=== PATIENT | male | born 1945 | race Native Hawaiian/Other Pacific Islander ===

== ENCOUNTER 2017-08-01 21:44 | Inpatient (IN) | payer MEDICARE ==
[~2017-08-01] VITALS: Ht 180.3 cm; Wt 78.1 kg
[~2017-08-01 21:44] MED LIST: ASPI-183 PO; GLUCTES27; LACT10SO PO; LANCETS1 MI1; LEVO50TA4 PO; LISI-519 PO; MAGN250T11 PO; MULT1TAB84 PO; TACR1 PO; VENL150C39 PO
[2017-08-01 21:53] VITALS: BP 221/117; PULSE 81; RESP 16; TEMP 98; O2SAT 99
[2017-08-01] MEDS ORDERED: SODIUM CHLOR 0.9% 1000 ML INJ 1,000 ML IV SCH (21:55)
[2017-08-01] MEDS ORDERED: LORazepam 2 MG/ML VIAL ONE (21:59)
[2017-08-01] MEDS ORDERED: SODIUM CHLORIDE 0.9% FLUSH 10 ML FLUSH IV FLUSH PRN (22:00)
[2017-08-01 22:02] VITALS: BP 221/117; PULSE 104; RESP 24; O2SAT 98
--- NOTE | 2017-08-01 22:12 | PD ---
HPI Chief Complaint: Seizure Time Seen by Provider: 21:55 Travel History International Travel<30 days: No Contact w/Intl Traveler<30days: No Traveled to known affect area: No History of Present Illness HPI This is a 71-year-old male who has a history of remote liver transplant who presents to the emergency department with seizure activity. At around 5 PM they were opening presents and he had an episode where he passed out and looked like he had a seizure. He went to rest. Later his checked on him and she noticed he had a second seizure that lasted about 30 minutes, constant, moderate severity associated with generalized tonic-clonic activity. The patient wet himself during this episode. He says he feels very cold but doesn' t provide much other history. He's never had seizures before per [facility]. PFSH Past Medical History Arthritis: No Asthma: No Autoimmune Disease: No Blood Disorders: Yes Anxiety: No Depression: Yes Heart Rhythm Problems: No Cancer: No Cardiovascular Problems: Yes High Cholesterol: No Chemotherapy: No Chest Pain: No Congestive Heart Failure: No COPD: No Cerebrovascular Accident: No Diabetes: Yes Endocrine: Yes GERD: No Glaucoma: No Genitourinary: Yes Headaches: Yes Hepatitis: Yes (hep-c) Hiatal Hernia: Yes Hypertension: No Immune Disorder: No Kidney Stones: Yes Musculoskeletal: No Neurologic: Yes Psychiatric: No Reproductive: No Respiratory: No Myocardial Infarction: No Renal Failure: No Seizures: No Sickle Cell Disease: No Sleep Apnea: No Thyroid Disease: No Ulcer: No ?: Not Past Surgical History Abdominal Surgery: Yes (hernia repair and kidney stones removed.two clavicles resected,) AICD: No Cardiac Surgery: No Cholecystectomy: Yes Ear Surgery: No Endocrine Surgery: No Eye Surgery: No Genitourinary Surgery: No Gynecologic Surgery: No Pacemaker: No Thoracic Surgery: No Other Surgery: Yes (LIVER TRANSPLANT 06/2004) Social History Alcohol Use: No Tobacco Use: No Substance Use: No Allergies-Medications (Allergen,Severity, Reaction): Coded Allergies: Sulfa (Sulfonamide Antibiotics) (Unverified Allergy, Severe, Hives, ) codeine (Unverified Allergy, Mild, NAUSEA, 03/22/17) Reported Meds & Prescriptions Reported Meds & Active Scripts Active Levothyroxine (Levothyroxine Sodium) 50 Mcg Tab 50 Mcg PO DAILY Lancets 1 Mis Mis Ea .ROUTE BID Margaret Contour Next Blood Test Strips (Blood Glucose Test Strips) 1 Alma Alma 1 Strip .ROUTE BID Venlafaxine ER 24 HR (Venlafaxine HCl) 150 Mg Cap 150 Mg PO DAILY Lisinopril 5 Mg Tab 5 Mg PO DAILY Lactulose Liq (Lactulose) 10 Gm/15 Ml Soln 30 Ml PO TID Reported Aspirin 325 Mg Tab 325 Mg PO DAILY Magnesium Oxide 250 Mg Tab 250 Mg PO DAILY Prograf (Tacrolimus) 1 Mg Cap 1 Mg PO DAILY 1tab in the am and 2 tabs at hs Review of Systems ROS Limitations: Altered Mental Status (somnolent) Physical Exam Narrative GENERAL:Well appearing, no acute distress SKIN: Focused skin assessment warm and dry. HEAD: Atraumatic. Normocephalic. EYES: Pupils equal and round. No injection or drainage. ENT: Moist mucous membranes NECK: Trachea midline. CARDIOVASCULAR: Regular rate and rhythm. No murmur appreciated. RESPIRATORY: Clear to auscultation. Breath sounds equal bilaterally. GASTROINTESTINAL: Abdomen soft, non-tender, nondistended. MUSCULOSKELETAL: No obvious deformities. NEUROLOGICAL: Sleepy but awakens and answers questions. No obvious cranial nerve deficits. Moving all extremities, 5 out of 5 strength in the bilateral upper and lower extremities. No dysarthria or aphasia. Data Data Last Documented VS Vital Signs Date Time Temp Pulse Resp B/P (MAP) Pulse Ox O2 Delivery O2 Flow Rate FiO2 08/01/17 22:21 100 20 150/72 (98) 100 Nasal Cannula 2.00 08/01/17 21:53 98.0 Orders Orders Complete Blood Count With Diff (08/01/17 21:55) Comprehensive Metabolic Panel (08/01/17 21:55) Prothrombin Time / Inr (Pt) (08/01/17 21:55) Act Partial Throm Time (Ptt) (08/01/17 21:55) Urinalysis - C+S If Indicated (08/01/17 21:55) Ct Brain W/O Iv Contrast(Rout) (08/01/17 21:55) Blood Glucose (08/01/17 21:55) Ecg Monitoring (08/01/17 21:55) Iv Access Insert/Monitor (08/01/17 21:55) Oximetry (08/01/17 21:55) Sodium Chloride 0.9% Flush (Ns Flush) (08/01/17 22:00) Sodium Chlor 0.9% 1000 Ml Inj (Ns 1000 M (08/01/17 21:55) Alcohol (Ethanol) (08/01/17 21:55) Lorazepam Inj (Ativan Inj) (08/01/17 21:59) Fosphenytoin Inj (Cerebyx Inj) (08/01/17 22:15) Ammonia (08/01/17 22:23) Lorazepam Inj (Ativan Inj) (08/01/17 22:30) Lactulose Liq (Lactulose Liq) (08/01/17 23:45) Admit Order (Ed Use Only) (08/02/17 00:01) Place In Observation (08/02/17 ) Vital Signs (Adult) Q4H (08/02/17 00:05) Activity Bed Rest (08/02/17 ) Neuro Checks Q4H (08/02/17 00:05) 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 DARIANA.Q8H (08/02/17 00:05) ^ Seizure Precautions (08/02/17 ) Diet Heart Healthy (08/02/17 Breakfast) Sodium Chloride 0.9% Flush (Ns Flush) (08/02/17 00:15) Sodium Chloride 0.9% Flush (Ns Flush) (08/02/17 09:00) Ondansetron Inj (Zofran Inj) (08/02/17 00:15) Complete Blood Count With Diff (08/02/17 06:00) Comprehensive Metabolic Panel (08/02/17 06:00) Eeg Study (08/02/17 ) Consult Neurology (08/02/17 ) Lorazepam Inj (Ativan Inj) (08/02/17 00:15) Acetaminophen (Tylenol) (08/02/17 00:15) Bedside Glucose DARIANA.CSUGAR (08/02/17 00:05) Special Diet Instructions (08/02/17 00:05) Blood Glucose Goal (Criteria) (08/02/17 00:05) Hypoglycemia 70 Mg/Dl Or < (08/02/17 00:05) Notify Dr: Other (08/02/17 00:05) Dextrose 50% In Lili (Vial) Inj (D50w (Vi (08/02/17 00:15) Glucagon Inj (Glucagon Inj) (08/02/17 00:15) Insulin Aspart Supplemtl Scale (Novolog (08/02/17 08:00) Lactulose Liq (Lactulose Liq) (08/02/17 09:00) Ammonia (08/02/17 06:00) Heparin Inj (Heparin Inj) (08/02/17 06:00) Labs Laboratory Tests Test 08/01/17 21:50 08/01/17 22:20 White Blood Count 14.8 TH/MM3 Red Blood Count 5.13 MIL/MM3 Hemoglobin 15.9 GM/DL Hematocrit 47.0 % Mean Corpuscular Volume 91.6 FL Mean Corpuscular Hemoglobin 31.0 PG Mean Corpuscular Hemoglobin Concent 33.8 % Red Cell Distribution Width 14.3 % Platelet Count 179 TH/MM3 Mean Platelet Volume 9.0 FL Neutrophils (%) (Auto) 67.7 % Lymphocytes (%) (Auto) 25.7 % Monocytes (%) (Auto) 4.6 % Eosinophils (%) (Auto) 1.6 % Basophils (%) (Auto) 0.4 % Neutrophils # (Auto) 10.0 TH/MM3 Lymphocytes # (Auto) 3.8 TH/MM3 Monocytes # (Auto) 0.7 TH/MM3 Eosinophils # (Auto) 0.2 TH/MM3 Basophils # (Auto) 0.1 TH/MM3 CBC Comment AUTO DIFF Differential Comment AUTO DIFF CONFIRMED Platelet Estimate NORMAL Platelet Morphology Comment NORMAL Prothrombin Time 10.0 SEC Prothromb Time International Ratio 1.0 RATIO Activated Partial Thromboplast Time 24.5 SEC Blood Urea Nitrogen 27 MG/DL Creatinine 1.67 MG/DL Random Glucose 192 MG/DL Total Protein 7.8 GM/DL Albumin 4.0 GM/DL Calcium Level 9.0 MG/DL Alkaline Phosphatase 112 U/L Aspartate Amino Transf (AST/SGOT) 31 U/L Alanine Aminotransferase (ALT/SGPT) 35 U/L Total Bilirubin 0.3 MG/DL Sodium Level 141 MEQ/L Potassium Level 3.5 MEQ/L Chloride Level 107 MEQ/L Carbon Dioxide Level 17.4 MEQ/L Anion Gap 17 MEQ/L Estimat Glomerular Filtration Rate 41 ML/MIN Ethyl Alcohol Level LESS THAN 3 MG/DL Ammonia 115 MCMOL/L MDM Medical Decision Making Medical Screen Exam Complete: Yes Emergency Medical Condition: Yes Interpretation(s) CT head: No intracranial hemorrhage Leukocytosis (possible stress response in the setting of seizure) Anion gap of 17 with low bicarbonate likely in the setting of recent seizure due to lactic acidosis Renal insufficiency Ammonia is 115 Differential Diagnosis Seizure, hepatic encephalopathy, intracranial hemorrhage, stroke, encephalitis Narrative Course This is a 71-year-old male who has a history of recurrent hepatic encephalopathy presents to the emergency department having had at least 2 if not 3 episodes of seizure-like activity today. He had one episode here in the emergency department. He was placed on a monitor and an IV was established. He was given 2 mg of IV Ativan and loaded with fosphenytoin. CT of the head was negative for intracranial hemorrhage. Labs demonstrate some dehydration and are consistent with recent seizure. His reports that one year ago he had a similar episode where he had a seizure and it was attributed to his hepatic encephalopathy. Today his ammonia is over 100. Patient will be admitted to the hospital for continued seizure management and lactulose due to hepatic encephalopathy. Physician Communication Physician Communication Discussed with Dr. Carias Diagnosis Primary Impression: Seizures Additional Impression: Hepatic encephalopathy Admitting Information Admitting Physician Requests: Admit Peggy Ortiz MD Aug 01, 2017 22:12
[2017-08-01] MEDS ORDERED: FOSPHENYTOIN INJ 1,000 MGPE in SODIUM CHLORIDE 0.9% INJ 50 ML IV ONE (22:15)
[2017-08-01 22:21] VITALS: BP 150/72; PULSE 100; RESP 20; O2SAT 100
[2017-08-01] MEDS ORDERED: LORazepam 2 MG/ML VIAL IV PUSH ONE (22:30)
[2017-08-01 22:35] LABS: BASOPHIL # 0.1 TH/MM3 (0-0.2); BASOPHIL % 0.4 % (0.0-2.0); EOSINOPHIL # 0.2 TH/MM3 (0-0.4); EOSINOPHIL % 1.6 % (0.0-4.0); HEMOGLOBIN 15.9 GM/DL (13.0-17.0); LYMPH % 25.7 % (9.0-44.0); LYMPHOCYTE # 3.8 TH/MM3 (1.0-4.8); MEAN CELL VOLUME 91.6 FL (80.0-100.0); MEAN CORPUSCULAR HGB CONC 33.8 % (32.0-36.0); MONO % 4.6 % (0.0-8.0); MONOCYTE # 0.7 TH/MM3 (0-0.9); NEUT % 67.7 % (16.0-70.0); PLATELET COUNT 179 TH/MM3 (150-450); RED BLOOD COUNT 5.13 MIL/MM3 (4.50-5.90); RED CELL DISTRIBUTION WIDTH 14.3 % (11.6-17.2); WHITE BLOOD COUNT 14.8 TH/MM3 (4.0-11.0)
--- NOTE | 2017-08-01 22:48 | RADRPT ---
EXAM DATE/TIME: 08/01/2017 22:23 [facility] COMPARISON: CT BRAIN W/O CONTRAST, June 23, 2016, 15:45. INDICATIONS : Altered mental status, history of seizures. RADIATION DOSE: 69.16 CTDIvol (mGy) MEDICAL HISTORY : Renal calculi. Diabetes mellitus type 2. SURGICAL HISTORY : Hernia repair. ENCOUNTER: Initial ACUITY: 1 day PAIN SCALE: Non-responsive LOCATION: Bilateral cranial TECHNIQUE: Multiple contiguous axial images were obtained of the head. Using automated exposure control and adj ustment of the mA and/or kV according to patient size, radiation dose was kept as low as reasonably a chievable to obtain optimal diagnostic quality images. DICOM format image data is available electro nically for review and comparison. FINDINGS: CEREBRUM: The ventricles are normal for age. No evidence of midline shift, mass lesion, hemorrhage or acute in farction. No extra-axial fluid collections are seen. POSTERIOR FOSSA: The cerebellum and brainstem are intact. The 4th ventricle is midline. The cerebellopontine angle i s unremarkable. EXTRACRANIAL: The visualized portion of the orbits is intact. SKULL: The calvaria is intact. No evidence of skull fracture. CONCLUSION: No acute intracranial findings. Dayday Merchant MD on August 01, 2017 at 22:43 Board Certified Radiologist. This report was verified electronically.
[2017-08-01 22:51] LABS: ALKALINE PHOSPHATASE 112 U/L (45-117); TOTAL BILIRUBIN ADULT 0.3 MG/DL (0.2-1.0); TOTAL PROTEIN 7.8 GM/DL (6.4-8.2)
[2017-08-01 22:53] LABS: ALT (GPT) 35 U/L (12-78); AST (GOT) 31 U/L (15-37); BICARBONATE 17.4 MEQ/L (21.0-32.0); BLOOD UREA NITROGEN 27 MG/DL (7-18); CHLORIDE 107 MEQ/L (98-107); CREATININE 1.67 MG/DL (0.60-1.30); GLOMERULAR FILTRATION RATE 41 ML/MIN (>89); GLUCOSE,RANDOM 192 MG/DL (74-106); SODIUM (NA) 141 MEQ/L (136-145)
[2017-08-01] MEDS ORDERED: LACTULOSE SYRUP 20 GM/30 ML CUP PO ONE (23:45)
[2017-08-02] VITALS (9 sets, daily range): BP systolic 105–178; BP diastolic 59–81; PULSE 63–86; RESP 16–20; TEMP 97.9–99.5; O2SAT 91–100
[2017-08-02] MEDS ORDERED: ACETAMINOPHEN 325 MG TAB PO PRN (00:15)
[2017-08-02] MEDS ORDERED: GLUCAGON 1 MG/ML VIAL OTHER PRN (00:15)
[2017-08-02] MEDS ORDERED: LACTULOSE LIQ 300 ML in WATER STERILE FOR IRR BTL 700 ML RECTAL ONE (00:15)
[2017-08-02] MEDS ORDERED: DEXTROSE 50% IN WATER 50 ML VIAL(D50) IV PUSH PRN (00:15)
[2017-08-02] MEDS ORDERED: ONDANSETRON HCL 4 MG/2 ML VIAL IV PUSH PRN (00:15)
[2017-08-02] MEDS ORDERED: SODIUM CHLORIDE 0.9% FLUSH 10 ML FLUSH IV FLUSH PRN (00:15)
[2017-08-02] MEDS ORDERED: LORazepam 2 MG/ML VIAL IV PUSH PRN (00:15)
--- NOTE | 2017-08-02 00:54 | HHI.HP ---
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 Around approximately 7 PM his noticed bilateral lower extremity twitching which was concerning to her. The patient then went to lay down on the couch and was noted to have a generalized clonic tonic seizure at approximately 8:30 PM this lasted for approximately 30 seconds. Positive loss of bladder function. The patient has had a similar episode approximately one year ago secondary to hyperammonemia. Patient's ammonia today was 115. In the emergency department, the patient had a second witnessed seizure. He was given Ativan and fosphenytoin. Per the patient's , he has been postictal following his seizure at 8:30. He will arouse briefly to sternal rub but remains sleepy and does not answer questions. Review of Systems Unable to obtain secondary to patient's clinical condition Past Family Social History Past Medical History Diet-controlled diabetes mellitus Past Surgical History Status post liver transplant in 2003 for hepatitis C cirrhosis - followed at [facility] Allergies: Coded Allergies: Sulfa (Sulfonamide Antibiotics) (Unverified Allergy, Severe, Hives, ) codeine (Unverified Allergy, Mild, NAUSEA, 03/22/17) Family History Mother with diabetes mellitus Social History No alcohol, tobacco or illicit drugs Physical Exam Vital Signs Vital Signs Date Time Temp Pulse Resp B/P (MAP) Pulse Ox O2 Delivery O2 Flow Rate FiO2 08/02/17 00:29 86 16 128/60 (82) 97 Nasal Cannula 2.00 08/01/17 22:21 100 20 150/72 (98) 100 Nasal Cannula 2.00 08/01/17 22:10 96 20 100 Nasal Cannula 2.00 08/01/17 22:02 104 24 221/117 (151) 98 Nasal Cannula 2.00 08/01/17 21:53 98.0 81 16 221/117 151 99 Physical Exam GENERAL: male lying in bed SKIN: No rashes, ecchymoses or lesions. Cool and dry. HEAD: Atraumatic. Normocephalic. No temporal or scalp tenderness. EYES: Pupils equal round and reactive. No scleral icterus. No injection or drainage. ENT: Nose without bleeding, purulent drainage or septal hematoma. Airway patent. NECK: Trachea midline. No JVD or lymphadenopathy. Supple, nontender, no meningeal signs. CARDIOVASCULAR: Regular rate and rhythm without murmurs, gallops, or rubs. RESPIRATORY: Clear to auscultation. Breath sounds equal bilaterally. No wheezes , rales, or rhonchi. GASTROINTESTINAL: Abdomen soft, nondistended. No hepato-splenomegaly, or palpable masses. MUSCULOSKELETAL: Extremities without clubbing, cyanosis, or edema. No joint tenderness, effusion, or edema noted. NEUROLOGICAL: Rouses to sternal rub. Unable to answer questions. Laboratory Laboratory Tests Test 08/01/17 21:50 08/01/17 22:20 White Blood Count 14.8 Red Blood Count 5.13 Hemoglobin 15.9 Hematocrit 47.0 Mean Corpuscular Volume 91.6 Mean Corpuscular Hemoglobin 31.0 Mean Corpuscular Hemoglobin Concent 33.8 Red Cell Distribution Width 14.3 Platelet Count 179 Mean Platelet Volume 9.0 Neutrophils (%) (Auto) 67.7 Lymphocytes (%) (Auto) 25.7 Monocytes (%) (Auto) 4.6 Eosinophils (%) (Auto) 1.6 Basophils (%) (Auto) 0.4 Neutrophils # (Auto) 10.0 Lymphocytes # (Auto) 3.8 Monocytes # (Auto) 0.7 Eosinophils # (Auto) 0.2 Basophils # (Auto) 0.1 CBC Comment AUTO DIFF Differential Comment AUTO DIFF CONFIRMED Platelet Estimate NORMAL Platelet Morphology Comment NORMAL Prothrombin Time 10.0 Prothromb Time International Ratio 1.0 Activated Partial Thromboplast Time 24.5 Blood Urea Nitrogen 27 Creatinine 1.67 Random Glucose 192 Total Protein 7.8 Albumin 4.0 Calcium Level 9.0 Alkaline Phosphatase 112 Aspartate Amino Transf (AST/SGOT) 31 Alanine Aminotransferase (ALT/SGPT) 35 Total Bilirubin 0.3 Sodium Level 141 Potassium Level 3.5 Chloride Level 107 Carbon Dioxide Level 17.4 Anion Gap 17 Estimat Glomerular Filtration Rate 41 Ethyl Alcohol Level LESS THAN 3 Ammonia 115 Result Diagram: 08/01/17214908/01/172149 Caprini VTE Risk Assessment Caprini VTE Risk Assessment: Mod/High Risk (score >= 2) Caprini Risk Assessment Model Point Value = 1 Point Value = 2 Point Value = 3 Point Value = 5 Age 41-60 Minor surgery BMI > 25 kg/m2 Swollen legs Varicose veins or History of unexplained or recurrent spontaneous Oral contraceptives or hormone replacement Sepsis (< 1 month) Serious lung disease, including pneumonia (< 1 month) Abnormal pulmonary function Acute myocardial infarction Congestive heart failure (< 1 month) History of inflammatory bowel disease Medical patient at bed rest Age 61-74 Arthroscopic surgery Major open surgery (> 45 min) Laparoscopic surgery (> 45 min) Malignancy Confined to bed (> 72 hours) Immobilizing plaster cast Central venous access Age >= 75 History of VTE Family history of VTE Factor V Leiden Prothrombin [id number] Lupus anticoagulant Anticardiolipin antibodies Elevated serum homocysteine Heparin-induced thrombocytopenia Other congenital or acquired thrombophilia Stroke (< 1 month) Elective arthroplasty Hip, pelvis, or leg fracture Acute spinal cord injury (< 1 month) Prophylaxis Regimen Total Risk Factor Score Risk Level Prophylaxis Regimen 0-1 Low Early ambulation 2 Moderate Order ONE of the following: *Sequential Compression Device (SCD) *Heparin 5000 units SQ BID 3-4 Higher Order ONE of the following medications: *Heparin 5000 units SQ TID *Enoxaparin/Lovenox 40 mg SQ daily (WT < 150 kg, CrCl > 30 mL/min) *Enoxaparin/Lovenox 30 mg SQ daily (WT < 150 kg, CrCl > 10-29 mL/min) *Enoxaparin/Lovenox 30 mg SQ BID (WT < 150 kg, CrCl > 30 mL/min) AND/OR *Sequential Compression Device (SCD) 5 or more Highest Order ONE of the following medications: *Heparin 5000 units SQ TID (Preferred with Epidurals) *Enoxaparin/Lovenox 40 mg SQ daily (WT < 150 kg, CrCl > 30 mL/min) *Enoxaparin/Lovenox 30 mg SQ daily (WT < 150 kg, CrCl > 10-29 mL/min) *Enoxaparin/Lovenox 30 mg SQ BID (WT < 150 kg, CrCl > 30 mL/min) AND *Sequential Compression Device (SCD) Assessment and Plan Assessment and Plan Assessment/plan: 1. Seizure Patient with history of seizure 1 year ago, likely secondary to hyperammonemia EEG pending Neurology consulted, appreciate recommendations Seizure precautions Ativan 2. Hyperammonemia NH4 115 Lactulose enema 1 given patient's current mental status he is unable to take by mouth Scheduled lactulose Follow ammonia level 3. KAUSHIK Cr 1.67, baseline 1.19 IVFs Monitor renal function Avoid nephrotoxic agents 4. Diabetes mellitus Diet controlled at home SSI Monitor blood glucose FEN Heart healthy once tolerating PO NS at 100 cc/hr Electrolytes: monitor and replete prn Heparin Physician Certification 2 Midnight Certification Type: Admission for Inpatient Services Order for Inpatient Services The services are ordered in accordance with Medicare regulations or non- Medicare payer requirements, as applicable. In the case of services not specified as inpatient-only, they are appropriately provided as inpatient services in accordance with the 2-midnight benchmark. Estimated LOS (days): 2 2 days is the estimated time the patient will need to remain in the hospital, assuming treatment plan goals are met and no additional complications. Post-Hospital Plan: Not yet determined Naomi Carias MD Aug 02, 2017 00:54
[2017-08-02] MEDS: SODIUM CHLOR 0.9% 1000 ML INJ 1,000 ML IV SCH ×3 (01:28→20:13)
[2017-08-02] MEDS ORDERED: LACTULOSE SYRUP 20 GM/30 ML CUP PO ONE (01:45)
[2017-08-02 05:39] LABS: AUTOMATED NEUTROPHIL # 6.6 TH/MM3 (1.8-7.7); BASOPHIL % 0.5 % (0.0-2.0); EOSINOPHIL # 0.1 TH/MM3 (0-0.4); EOSINOPHIL % 0.8 % (0.0-4.0); HEMATOCRIT 42.7 % (39.0-51.0); HEMOGLOBIN 14.8 GM/DL (13.0-17.0); LYMPH % 20.8 % (9.0-44.0); LYMPHOCYTE # 1.9 TH/MM3 (1.0-4.8); MEAN CELL VOLUME 89.2 FL (80.0-100.0); MEAN CORPUSCULAR HEMOGLOBIN 30.9 PG (27.0-34.0); MEAN CORPUSCULAR HGB CONC 34.6 % (32.0-36.0); MEAN PLATELET VOLUME 7.7 FL (7.0-11.0); MONO % 7.9 % (0.0-8.0); MONOCYTE # 0.7 TH/MM3 (0-0.9); PLATELET COUNT 141 TH/MM3 (150-450); RED BLOOD COUNT 4.78 MIL/MM3 (4.50-5.90); RED CELL DISTRIBUTION WIDTH 14.3 % (11.6-17.2); WHITE BLOOD COUNT 9.4 TH/MM3 (4.0-11.0)
[2017-08-02] MEDS: HEPARIN SODIUM - SQ 10,000 UNITS/ML VIAL SQ SCH ×3 (05:47→21:59)
[2017-08-02 06:01] LABS: ALBUMIN 3.5 GM/DL (3.4-5.0); AST (GOT) 27 U/L (15-37); BICARBONATE 23.6 MEQ/L (21.0-32.0); BLOOD UREA NITROGEN 23 MG/DL (7-18); CALCIUM 8.3 MG/DL (8.5-10.1); CHLORIDE 108 MEQ/L (98-107); CREATININE 1.24 MG/DL (0.60-1.30); GLOMERULAR FILTRATION RATE 58 ML/MIN (>89); GLUCOSE,RANDOM 144 MG/DL (74-106); SODIUM (NA) 139 MEQ/L (136-145)
[2017-08-02 06:04] LABS: ALKALINE PHOSPHATASE 95 U/L (45-117); ALT (GPT) 29 U/L (12-78); TOTAL BILIRUBIN ADULT 0.4 MG/DL (0.2-1.0); TOTAL PROTEIN 6.9 GM/DL (6.4-8.2)
[2017-08-02] MEDS: SODIUM CHLORIDE 0.9% FLUSH 10 ML FLUSH IV FLUSH SCH ×2 (09:56→20:12)
[2017-08-02] MEDS: LACTULOSE SYRUP 20 GM/30 ML CUP PO SCH ×4 (09:56→20:12)
[2017-08-02] MEDS: INSULIN ASPART SUPPLEMENTAL SCALE SQ SCH ×4 (09:56→20:16)
--- NOTE | 2017-08-02 10:33 | MB ---
cc: EFFIE TODD M.D. DATE OF CONSULTATION: 08/02/2017 REASON FOR CONSULTATION: Seizure. Cc. HISTORY OF PRESENT ILLNESS Mr. Diehl is a 71-year-old man who has a history of liver transplant due to hepatitis and hyperammonemia. He takes lactulose daily. He is admitted to the hospital after having a generalized seizure. His states that his ammonia level got high, after he forgot to take a lactulose dose and became dehydrated. Apparently he has had seizures in the past. This patient with hyperammonemia. He received a dose of Cerebyx of 1000 mg. The ER. He had generalized shaking activity prior to that, he has had no recurrent seizures. Ammonia level yesterday was 115, today it is down to 34. He has had no recurrent seizures. PAST MEDICAL HISTORY: He has a history of hepatitis C with cirrhosis Liver transplant Diet-controlled diabetes. ALLERGIES SULFA CODEINE MEDICATIONS 1. Insulin. 2. Heparin 5000 units Subcu q.8 h, 3. lactulose 30 cc q.i.d. 4. Ativan p.r.n. NEUROLOGIC EXAMINATION VITAL SIGNS: Blood pressure is 169/81, pulse is 69, respiratory rate is 18, temperature 98 degrees. NEUROLOGIC: Higher cortical function she is alert, oriented x3. Speech is normal. He follows commands well. Cranial nerves are intact and motor exam he has got 5/5 strength of all groups in both upper and lower extremities. There is no drift. Fine motor skills within normal limits. Reflexes symmetric. RADIOLOGIC: CT of the brain is unremarkable. EEG pending. LABORATORY DATA The white sodium is 139, potassium 3.8, chloride 108, CO2 23.6, they BUN is 23, creatinine 1.24, GFR is 58, glucose 144, calcium 8.3, AST 27, ALT 29, alk phos 95, ammonia level today was 34 yesterday is 115. CBC white count is 9,400, hemoglobin 14.8, hematocrit 43% platelet count 141,000. IMPRESSION Generalized seizure probably related to elevated ammonia level. RECOMMENDATIONS Will obtain an MRI of the brain to rule out any other cause of seizure. Also obtain an Electroencephalogram, we will continue the Cerebyx for now, however of the electroencephalogram is negative for any epileptiform discharges I would stop Cerebyx. The patient should not drive for least 6 months. MD Laury Sanchez /10:01 AM /10:10 AM
[2017-08-02] MEDS ORDERED: GADODIAMIDE PF 287 MG/ML 5 ML VIAL (for RAD MRI) IVCONTRAST ONE (13:00)
--- NOTE | 2017-08-02 13:27 | RADRPT ---
EXAM DATE/TIME: 08/02/2017 12:08 [facility] COMPARISON: No previous studies available for comparison. INDICATIONS : Seizures. Hepatic encephalopathy. CONTRAST: 15 cc Omniscan (gadodiamide) IV MEDICAL HISTORY : Hepatitis C. Cirrhosis. Diabetes mellitus type 2. SURGICAL HISTORY : Liver transplant. ENCOUNTER: Subsequent ACUITY: 2 day PAIN SCORE: 0/10 LOCATION: head. TECHNIQUE: Multiplanar, multisequence MRI of the brain was performed both prior to and following the administrat ion of paramagnetic contrast. FINDINGS: CEREBRUM: The ventricles are normal for age. No evidence of midline shift, mass lesion, hemorrhage or acute in farction. No extraaxial fluid collections are seen. The pituitary gland and suprasellar cistern are normal in configuration. WHITE MATTER: No significant signal abnormalities are seen in the white matter. POSTERIOR FOSSA: The cerebellum and brainstem are intact. The 4th ventricle is midline. The cerebellopontine angle is unremarkable. The cerebellar tonsils are normal in position. DIFFUSION IMAGING: No focal areas of restricted diffusion are seen. No evidence of acute infarction. EXTRACRANIAL: The visualized portions of the orbits and paranasal sinuses are unremarkable. POST-CONTRAST: No abnormal areas of parenchymal or dural enhancement. No evidence of blood-brain barrier breakdown. CONCLUSION: 1. Unremarkable exam. 2. No evidence of acute infarct, hemorrhage, mass, edema or enhancing lesions. Kamron Souza MD on August 02, 2017 at 13:22 Board Certified Radiologist. This report was verified electronically.
[2017-08-02] MEDS: FOSPHENYTOIN SODIUM 100 MG PE/2 ML VIAL IV SCH ×2 (14:16→21:59)
--- NOTE | 2017-08-02 14:29 | HHI.PR ---
Subjective Remarks Follow-up seizure, hyperammonemia. Patient states that he feels better, but still has a headache. The headache is in the frontal and temporal regions. He denies chest pain or dyspnea. Objective Vitals Vital Signs Date Time Temp Pulse Resp B/P (MAP) Pulse Ox O2 Delivery O2 Flow Rate FiO2 08/02/17 07:42 98.4 69 18 169/81 (110) 100 08/02/17 04:28 68 08/02/17 04:00 97.9 67 16 105/70 (82) 99 08/02/17 01:30 98.2 73 20 139/78 (98) 98 08/02/17 01:15 69 08/02/17 00:29 86 16 128/60 (82) 97 Nasal Cannula 2.00 08/01/17 22:21 100 20 150/72 (98) 100 Nasal Cannula 2.00 08/01/17 22:10 96 20 100 Nasal Cannula 2.00 08/01/17 22:02 104 24 221/117 (151) 98 Nasal Cannula 2.00 08/01/17 21:53 98.0 81 16 221/117 (151) 99 I/O 08/01/17 08/01/17 08/01/17 08/02/17 08/02/17 08/02/17 07:00 15:00 23:00 07:00 15:00 23:00 Intake Total 1652 ml Balance 1652 ml Intake Oral 120 ml IV Total 1532 ml # Voids 2 # Bowel Movements 0 Result Diagram: 08/02/17 0519 08/02/17 0519 Imaging Last Impressions Brain MRI 08/02/17 0000 Signed Impressions: Service Date/Time: Wednesday, August 02, 2017 12:08 - CONCLUSION: 1. Unremarkable exam. 2. No evidence of acute infarct, hemorrhage, mass, edema or enhancing lesions. Kamron Souza MD Head CT 08/01/17 2155 Signed Impressions: Service Date/Time: Tuesday, August 01, 2017 22:23 - CONCLUSION: No acute intracranial findings. Dayday Merchant MD Objective Remarks General: No acute distress. Heart: Regular rate and rhythm. No murmur. Lungs: Clear to auscultation bilaterally. No wheezes, rales, or rhonchi. Breathing is nonlabored. Abdomen: Soft, nontender, nondistended. Extremities: No lower extremity edema. Psych: Alert and oriented. Procedures None Urinary Catheter: No Vascular Central Line Catheter: No A/P Assessment and Plan 1. Seizure: Patient had a seizure approximately a year ago, apparently felt to be secondary to hyperammonemia. Appreciate neurology recommendations. MRI shows no acute change. EEG is pending. Seizure precautions. Ativan as needed. 2. Hyperammonemia: Ammonia level decreased today. Continue lactulose. Mental status has improved significantly. 3. Acute kidney injury: Improved. 4. Diabetes mellitus: Diet-controlled. Monitor Accu-Cheks and cover with sliding scale insulin. 5. DVT prophylaxis: Heparin. Lauri Santiago MD Aug 02, 2017 14:29
[2017-08-02] MEDS: ASPIRIN 325 MG TAB PO SCH (15:06)
--- NOTE | 2017-08-02 20:55 | MG ---
cc: KRYSTLE SOLARES MD Lab No: Date: 08/02/17 Age: 71 Sex: M Race: [address] Walls. Awake, drowsy, asleep study with photic done. EEG 06/24/[address] negative. MRI was pending. A 71-year-old man admitted with seizure activity 30 minutes, constant, moderate severity associated with generalized tonic clonic event, incontinent of urine, history of hep C, nephrolithiasis, liver transplant 1994, multiple surgeries, orthopedic surgeries Heparin Tylenol. ____ Cerebyx DESCRIPTION OF RECORD The patient had an overall background rhythm of 8 to 8 1/2 Hz, 20-30 microvolts. Overall symmetrical background. There is some artifact but otherwise looks fairly symmetrical. Impedance check issue that will resolves. EKG looks sinus. There were a couple episodes of sharps over the left frontal temporal region epoch 33 and again possibly epoch 47. Photic stimulation mild driving response. IMPRESSION Abnormal EEG with occasional sharp waves noted as described in the body of the ____. There is potential for epileptic activity but no active seizures. Clinical correlation. Krystle Solares MD DF/ /7:09 PM /8:30 PM
[2017-08-03] VITALS (7 sets, daily range): BP systolic 126–167; BP diastolic 60–87; PULSE 61–95; RESP 17–18; TEMP 98–98.6; O2SAT 96–99
[2017-08-03] MEDS: LEVOTHYROXINE SODIUM 50 MCG TAB PO SCH (05:48)
[2017-08-03] MEDS: FOSPHENYTOIN SODIUM 100 MG PE/2 ML VIAL IV SCH ×3 (05:48→20:48)
[2017-08-03] MEDS: HEPARIN SODIUM - SQ 10,000 UNITS/ML VIAL SQ SCH ×3 (05:48→20:48)
[2017-08-03] MEDS: SODIUM CHLOR 0.9% 1000 ML INJ 1,000 ML IV SCH ×2 (06:48→17:17)
[2017-08-03] MEDS: INSULIN ASPART SUPPLEMENTAL SCALE SQ SCH ×4 (08:00→20:47)
[2017-08-03] MEDS: VENLAFAXINE HCL XR 75 MG CAP PO SCH (09:21)
[2017-08-03] MEDS: ASPIRIN 325 MG TAB PO SCH (09:21)
[2017-08-03] MEDS: LISINOPRIL 5 MG TAB PO SCH (09:22)
[2017-08-03] MEDS: LACTULOSE SYRUP 20 GM/30 ML CUP PO SCH ×4 (09:23→20:46)
[2017-08-03] MEDS: MAGNESIUM OXIDE 400 MG TAB PO SCH (09:23)
[2017-08-03] MEDS: TACROLIMUS 1 MG CAP PO SCH (09:23)
[2017-08-03] MEDS: SODIUM CHLORIDE 0.9% FLUSH 10 ML FLUSH IV FLUSH SCH ×2 (09:24→20:46)
--- NOTE | 2017-08-03 14:40 | HHI.PR ---
Subjective Remarks Follow up seizure. Patient feels tired. No other complaints at this time. No chest pain, dyspnea. Objective Vitals Vital Signs Date Time Temp Pulse Resp B/P (MAP) Pulse Ox O2 Delivery O2 Flow Rate FiO2 08/03/17 08:00 98.3 63 18 143/87 (105) 99 08/03/17 04:00 98.4 61 17 126/66 (86) 96 08/03/17 00:00 98.5 74 18 126/60 (82) 98 08/02/17 20:00 98.3 77 20 132/59 (83) 96 08/02/17 20:00 74 08/02/17 18:30 99.5 76 20 178/74 (108) 96 08/02/17 15:37 98.3 63 18 153/67 (95) 91 I/O 08/02/17 08/02/17 08/02/17 08/03/17 08/03/17 08/03/17 07:00 15:00 23:00 07:00 15:00 23:00 Intake Total 1652 ml 2222 ml 700 ml Output Total 300 ml 1000 ml Balance 1652 ml 1922 ml -300 ml Intake Oral 120 ml 480 ml IV Total 1532 ml 1742 ml 700 ml Output Urine Total 300 ml 1000 ml # Voids 2 4 6 # Bowel Movements 0 0 1 1 Result Diagram: 08/02/17 0519 08/02/17 0519 Imaging Last Impressions Brain MRI 08/02/17 0000 Signed Impressions: Service Date/Time: Wednesday, August 02, 2017 12:08 - CONCLUSION: 1. Unremarkable exam. 2. No evidence of acute infarct, hemorrhage, mass, edema or enhancing lesions. Kamron Souza MD Head CT 08/01/17 0471 Signed Impressions: Service Date/Time: Tuesday, August 01, 2017 22:23 - CONCLUSION: No acute intracranial findings. Dayday Merchant MD Objective Remarks General: No acute distress. Heart: Regular rate and rhythm. No murmur. Lungs: Clear to auscultation bilaterally. No wheezes, rales, or rhonchi. Breathing is nonlabored. Abdomen: Soft, nontender, nondistended. Extremities: No lower extremity edema. Psych: Alert and oriented. Procedures None Urinary Catheter: No Vascular Central Line Catheter: No A/P Assessment and Plan 1. Seizure: Patient had a seizure approximately a year ago, apparently felt to be secondary to hyperammonemia. Appreciate neurology recommendations. MRI shows no acute change. EEG is abnormal. Seizure precautions. Ativan as needed. Continue Cerebyx. 2. Hyperammonemia: Ammonia level improved. Continue lactulose. Mental status has improved significantly. 3. Acute kidney injury: Improved. 4. Diabetes mellitus: Diet-controlled. Monitor Accu-Cheks and cover with sliding scale insulin. 5. S/P liver transplant: Continue Prograf 6. DVT prophylaxis: Heparin. Discharge Planning When cleared by neurology. Lauri Santiago MD Aug 03, 2017 14:40
[2017-08-04] VITALS: BP 139/80; PULSE 60; RESP 18; TEMP 98.2; O2SAT 98
[2017-08-04 00:18] VITALS: PULSE 66
[2017-08-04] MEDS: SODIUM CHLOR 0.9% 1000 ML INJ 1,000 ML IV SCH ×2 (02:24→08:52)
[2017-08-04 04:00] VITALS: BP 138/81; PULSE 65; RESP 17; TEMP 98.4; O2SAT 97
[2017-08-04] MEDS: LEVOTHYROXINE SODIUM 50 MCG TAB PO SCH (06:17)
[2017-08-04] MEDS: HEPARIN SODIUM - SQ 10,000 UNITS/ML VIAL SQ SCH (06:17)
[2017-08-04] MEDS: FOSPHENYTOIN SODIUM 100 MG PE/2 ML VIAL IV SCH (06:17)
[2017-08-04 08:00] VITALS: BP 145/78; PULSE 61; PULSE 80; RESP 16; TEMP 98.2; O2SAT 97
[2017-08-04] MEDS: INSULIN ASPART SUPPLEMENTAL SCALE SQ SCH (08:00)
[2017-08-04] MEDS: MAGNESIUM OXIDE 400 MG TAB PO SCH (08:38)
[2017-08-04] MEDS: VENLAFAXINE HCL XR 75 MG CAP PO SCH (08:38)
[2017-08-04] MEDS: TACROLIMUS 1 MG CAP PO SCH (08:39)
[2017-08-04] MEDS: ASPIRIN 325 MG TAB PO SCH (08:39)
[2017-08-04] MEDS: LACTULOSE SYRUP 20 GM/30 ML CUP PO SCH (08:39)
[2017-08-04] MEDS: LISINOPRIL 5 MG TAB PO SCH (08:39)
[2017-08-04] MEDS: SODIUM CHLORIDE 0.9% FLUSH 10 ML FLUSH IV FLUSH SCH (08:45)
--- NOTE | 2017-08-04 10:15 | HHI.PR ---
Review/Management Diagnosis recurrent sz. possibly related to hyperamonemia Plan change to dilantin 100 mg tid and stop cerebyx Ok from neuro standpoint to dc home on dilantin 100 mg tid follow up with me in office in two weeks I told him no driving X 6 months and he agrees Diagnosis/Plan: Subjective Subjective Comments No acute events reported No sz. Active Medications Current Medications Medications (Trade) Dose Ordered Sig/Blane Route Start Time Stop Time Status Last Admin (NS Flush) 2 ml UNSCH PRN IV FLUSH 08/02/17 00:15 (NS Flush) 2 ml BID IV FLUSH 08/02/17 09:00 08/04/17 08:45 (Zofran Inj) 4 mg Q6H PRN IV PUSH 08/02/17 00:15 08/02/17 22:05 (Ativan Inj) 2 mg Q10M PRN IV PUSH 08/02/17 00:15 (D50w (Vial) Inj) 50 ml UNSCH PRN IV PUSH 08/02/17 00:15 (Glucagon Inj) 1 mg UNSCH PRN OTHER 08/02/17 00:15 (NovoLOG SUPPLEMENTAL SCALE) 1 ACHS SLIDING SCALE SQ 08/02/17 08:00 08/02/17 17:11 (Lactulose Liq) 30 ml QID PO 08/02/17 09:00 08/05/17 08:59 08/04/17 08:39 (Heparin Inj) 5,000 units Q8HR SQ 08/02/17 06:00 08/04/17 06:17 Sodium Chloride 1,000 ml @ 100 mls/hr Q10H IV 08/02/17 01:00 08/04/17 08:52 (Cerebyx Inj) 100 mgpe Q8HR IV 08/02/17 14:00 08/04/17 06:17 (Aspirin) 325 mg DAILY PO 08/02/17 14:15 08/04/17 08:39 (Synthroid) 50 mcg DAILY@0600 PO 08/03/17 06:00 08/04/17 06:17 (Prinivil) 5 mg DAILY PO 08/03/17 09:00 08/04/17 08:39 (Prograf) 1 mg DAILY PO 08/03/17 09:00 08/04/17 08:39 (Effexor Xr) 150 mg DAILY PO 08/03/17 09:00 08/04/17 08:38 (Mag-Ox) 200 mg DAILY PO 08/03/17 09:00 08/04/17 08:38 Allergies Allergies Coded Allergies Sulfa (Sulfonamide Antibiotics) (Unverified Allergy, Severe, Hives, 03/22/17) codeine (Unverified Allergy, Mild, NAUSEA, 03/22/17) Exam I&O / VS Vital Signs Date Time Temp Pulse Resp B/P (MAP) Pulse Ox O2 Delivery O2 Flow Rate FiO2 08/04/17 08:00 80 08/04/17 08:00 98.2 61 16 145/78 (100) 97 08/04/17 04:00 98.4 65 17 138/81 (100) 97 08/04/17 00:18 66 08/04/17 00:00 98.2 60 18 139/80 (99) 98 08/03/17 21:52 69 08/03/17 20:00 98.5 72 18 128/86 (100) 98 08/03/17 16:00 98.0 64 18 140/81 (100) 97 08/03/17 12:00 98.6 95 18 167/79 (108) 96 Exam Comments alert, oriented times three CN intact. MOTOR 5/5 BUE Objective Radiology Results MRI brain normal Diagnostic Tests EEG--occasional left fronto temporal sharps Nirav Sanchez MD PhD Aug 04, 2017 10:15
[2017-08-04] MEDS ORDERED: DILA100C PO (10:19)
--- NOTE | 2017-08-04 10:20 | HHI.DCPOC ---
Discharge Care Plan Diagnosis: (1) Hepatic encephalopathy (2) Seizures (3) Hypothyroidism Goals to Promote Your Health * To prevent worsening of your condition and complications * To maintain your health at the optimal level Directions to Meet Your Goals Take your medications as prescribed Follow your dietary instruction Follow activity as directed Keep your appointments as scheduled Take your immunizations and boosters as scheduled If your symptoms worsen call your PCP, if no PCP go to Urgent Care Center or Emergency Room Smoking is Dangerous to Your Health. Avoid second hand smoke Call the 24-hour hour crisis hotline for domestic abuse at Lauri Santiago MD Aug 04, 2017 10:20
--- NOTE | 2017-08-04 10:23 | HHI.PR ---
Subjective Remarks Follow up seizures. Patient has no complaints at this time. Denies chest pain, dyspnea. No further seizure activity. Wants to go home. Objective Vitals Vital Signs Date Time Temp Pulse Resp B/P (MAP) Pulse Ox O2 Delivery O2 Flow Rate FiO2 08/04/17 08:00 80 08/04/17 08:00 98.2 61 16 145/78 (100) 97 08/04/17 04:00 98.4 65 17 138/81 (100) 97 08/04/17 00:18 66 08/04/17 00:00 98.2 60 18 139/80 (99) 98 08/03/17 21:52 69 08/03/17 20:00 98.5 72 18 128/86 (100) 98 08/03/17 16:00 98.0 64 18 140/81 (100) 97 08/03/17 12:00 98.6 95 18 167/79 (108) 96 I/O 08/03/17 08/03/17 08/03/17 08/04/17 08/04/17 08/04/17 07:00 15:00 23:00 07:00 15:00 23:00 Intake Total 700 ml 480 ml 1000 ml Output Total 1000 ml 350 ml 500 ml Balance -300 ml 130 ml 500 ml Intake Oral 480 ml IV Total 700 ml 1000 ml Output Urine Total 1000 ml 350 ml 500 ml # Voids 6 # Bowel Movements 1 1 0 0 Result Diagram: 08/02/17 0519 08/02/17 0519 Imaging Last Impressions Brain MRI 08/02/17 0000 Signed Impressions: Service Date/Time: Wednesday, August 02, 2017 12:08 - CONCLUSION: 1. Unremarkable exam. 2. No evidence of acute infarct, hemorrhage, mass, edema or enhancing lesions. Kamron Souza MD Head CT 08/01/17 2151 Signed Impressions: Service Date/Time: Tuesday, August 01, 2017 22:23 - CONCLUSION: No acute intracranial findings. Dayday Merchant MD Objective Remarks General: No acute distress. Heart: Regular rate and rhythm. No murmur. Lungs: Clear to auscultation bilaterally. No wheezes, rales, or rhonchi. Breathing is nonlabored. Abdomen: Soft, nontender, nondistended. Extremities: No lower extremity edema. Psych: Alert and oriented. Procedures None Urinary Catheter: No Vascular Central Line Catheter: No A/P Assessment and Plan 1. Seizure: Patient had a seizure approximately a year ago, apparently felt to be secondary to hyperammonemia. Appreciate neurology recommendations. MRI shows no acute change. EEG is abnormal. Seizure precautions. Ativan as needed. Switch from Cerebyx to Dilantin. 2. Hyperammonemia: Ammonia level improved. Continue lactulose. Mental status has improved significantly. 3. Acute kidney injury: Improved. 4. Diabetes mellitus: Diet-controlled. Monitor Accu-Cheks and cover with sliding scale insulin. 5. S/P liver transplant: Continue Prograf 6. DVT prophylaxis: Heparin. Discussed with Dr. Sanchez. Discharge Planning Cleared for discharge by neurology. Discharge home in stable condition. Heart healthy, diabetic diet. Activity as tolerated, but no driving or baths. Lauri Santiago MD Aug 04, 2017 10:23
== END 2017-08-04 12:19 | disposition home or self-care (01) | DRG 101 ==
LOC: NEPC 21:44 → UNDOADMIN 08-02 00:02 → NEDA 08-02 00:02 → INTOOBSV 08-02 00:12 → NEDA 08-02 00:42 → NEDH 08-02 00:42 → OBSVTOIN 08-02 00:42 → N05B 08-02 01:01
PROVIDERS: ADMIT Family Medicine; ATTEND Family Medicine
DX: G40.89 Other seizures (principal); N17.9 Acute kidney failure, unspecified; E72.20 Disorder of urea cycle metabolism, unspecified; Z94.4 Liver transplant status; K72.90 Hepatic failure, unspecified without coma; E11.9 Type 2 diabetes mellitus without complications; E86.0 Dehydration; E03.9 Hypothyroidism, unspecified; F32.9 Major depressive disorder, single episode, unspecified
CPT/HCPCS: 70450; 70553; 80053; 80185; 80307; 82140; 82948; 85025; 85610; 85730; 95819; 96361; 96365; 96375; A9579; J1644; J1815; J2060; J2405; J7030; J7507; Q2009